=== PATIENT | female | born 1960 | race Caucasian/White ===

== ENCOUNTER 2016-12-28 06:32 | Day surgery (SDC) | payer MEDICAID ==
[~2016-12-28] VITALS: Ht 162.6 cm; Wt 70.8 kg
[2016-12-28] MEDS ORDERED: LIDOCAINE 2% 100 MG/5 ML UJET TP ONE (07:25)
[2016-12-28] MEDS ORDERED: LISI5TAB18 PO (07:49)
[2016-12-28] MEDS ORDERED: FERR325E14 PO (07:49)
== END 2016-12-28 10:45 | disposition home or self-care (01) ==
LOC: MDS 06:32 → MMU 06:41 → MDS 10:45
PROVIDERS: ATTEND Internal Medicine Gastroenterology
DX: Z12.11 Encounter for screening for malignant neoplasm of colon (principal); D12.7 Benign neoplasm of rectosigmoid junction; K57.30 Diverticulosis of large intestine without perforation or abscess without bleeding; D64.9 Anemia, unspecified; E66.3 Overweight; Z98.890 Other specified postprocedural states